=== PATIENT | male | born 1970 ===

== ENCOUNTER 2017-12-30 20:48 | Inpatient (IN) | payer OTHER ==
[2017-12-30 23:18] VITALS: BMI 33.2
[2017-12-31] MEDS ORDERED: Multivitamin (MVI) 10 ML, Thiamine 100 MG, Folic Acid 1 MG in Sodium Chloride 0.9% 1,00... IV ONE (02:52)
--- NOTE | 2017-12-31 02:58 | ED PDOC ---
Arrival/HPI - General Chief Complaint: Alcohol Ingestion Time Seen by Provider: 12/31/17 02:37 Historian: Patient - History of Present Illness Narrative History of Present Illness (Text): 47yoM, etoh 1L vodka daily, last drink yesterday morning, did addition heroin with palpitations which have resolved, wants to stop drinking alcohol and otherwise with tremor but no nausea/vomiting/headache/dizziness/difficulty breathing/chest pain/abdomen pain/numbness/tingling. 12/31/17 02:55 Time/Duration: 24 hours Symptom Onset: Gradual Symptom Course: Unchanged Activities at Onset: Rest Context: Sitting Past Medical History - Provider Review Nursing Documentation Reviewed: Yes - Travel History Have you recently traveled outside [place] w/in the past 3 mons?: No - Infectious Disease Hx of Infectious Diseases: None - Psychiatric Hx Substance Use: No - Anesthesia Hx Anesthesia: No Hx Anesthesia Reactions: No Hx Malignant Hyperthermia: No Family/Social History - Physician Review Nursing Documentation Reviewed: Yes Family/Social History: No Known Family HX Smoking Status: Never Smoked Hx Alcohol Use: Yes Frequency of alcohol use: Daily Hx Substance Use: No Allergies/Home Meds Allergies/Adverse Reactions: Allergies No Known Allergies Allergy (Verified 12/31/17 02:47) Home Medications: Home Meds Medication Instructions Recorded Confirmed No Known Home Med 12/31/17 12/31/17 Review of Systems - Review of Systems Constitutional: Normal Eyes: Normal ENT: Normal Respiratory: Normal Cardiovascular: Palpitations Gastrointestinal: Normal Genitourinary Male: Normal Musculoskeletal: Normal Skin: Normal Neurological: Other (tremor) Endocrine: Normal Hemo/Lymphatic: Normal Psychiatric: Anxiety Physical Exam Vital Signs Reviewed: Yes Vital Signs Temp Pulse Resp BP Pulse Ox 12/31/17 04:00 98.0 F 76 16 130/71 98 12/31/17 02:51 98.0 F 82 15 128/70 97 12/31/17 00:51 98.1 F 78 16 125/77 96 12/30/17 23:18 98.8 F 72 20 128/82 99 Temperature: Afebrile Blood Pressure: Hypertensive Pulse: Regular Respiratory Rate: Normal Appearance: Positive for: Uncomfortable Pain Distress: None Mental Status: Positive for: Alert and Oriented X 3 - Systems Exam Head: Present: Atraumatic, Normocephalic Pupils: Present: PERRL Extroacular Muscles: Present: EOMI Conjunctiva: Present: Normal Ears: Present: Normal Mouth: Present: Moist Mucous Membranes Pharnyx: Present: Normal Nose (External): Present: Atraumatic Nose (Internal): Present: Normal Inspection Neck: Present: Normal Range of Motion Respiratory/Chest: Present: Clear to Auscultation, Good Air Exchange Cardiovascular: Present: Regular Rate and Rhythm Abdomen: No: Tenderness, Distention, Normal Bowel Sounds, Peritoneal Signs, Rebound, Guarding, McBurney's Point Tender, Rovsing's Sign Present, Hernias, Feeding Tubes, Ostomy Tubes, Mass/Organomegaly, Scars, Other Back: Present: Normal Inspection Upper Extremity: Present: Normal Inspection Lower Extremity: Present: Normal Inspection Neurological: Present: GCS=15, CN II-XII Intact, Speech Normal, Motor Func Grossly Intact, Other (b/l mild tremor hands) Skin: Present: Warm, Normal Color Psychiatric: Present: Alert, Oriented x 3, Normal Insight, Normal Concentration Medical Decision Making ED Course and Treatment: 47yoM, etoh 1L vodka daily, last drink yesterday morning, did addition heroin with palpitations which have resolved, wants to stop drinking alcohol and otherwise with tremor but no nausea/vomiting/headache/dizziness/difficulty breathing/chest pain/abdomen pain/numbness/tingling. mild both hands tremor, alert/oriented, breathing comfortably, pink skin, good strength/sensation, 98.8temp, stable heart rate 72, elevated blood pressure 128/82, stable breathing rate 20, excellent oxygen level 99% room air. 12/31/17 02:58 12/31/17 04:19 ECG NSR wbc 5.9 hb 11 plts 153 K 3.4 Trop < 0.01 AST 194 ALT 101 AP 147 12/31/17 05:20 d/w Dr. Celis who stated can admit to Dr. Pettit who accepted. - Lab Interpretations Lab Results: 12/31/17 00:40 12/31/17 00:40 Lab Results 12/31/17 02:50: Urine Opiates Screen Positive H, Urine Methadone Screen Negative , Ur Barbiturates Screen Negative, Ur Phencyclidine Scrn Negative, Ur Amphetamines Screen Negative, U Benzodiazepines Scrn Positive, U Oth Cocaine Metabols Negative, U Cannabinoids Screen Negative 12/31/17 02:50: Urine Color Yellow, Urine Appearance Clear, Urine pH 6.0, Ur Specific Zoe >= 1.030, Urine Protein 30 H, Urine Glucose (UA) Negative, Urine Ketones Trace H, Urine Blood Negative, Urine Nitrate Negative, Urine Bilirubin Negative, Urine Urobilinogen 0.2, Ur Leukocyte Esterase Negative, Urine RBC 0 - 2, Urine WBC 0 - 2, Ur Epithelial Cells 0 - 2, Urine Bacteria Few , Urine Other Uyeast 12/31/17 00:40: Alcohol, Quantitative 123 H 12/31/17 00:40: Salicylates < 1 L, Acetaminophen < 10.0 L 12/31/17 00:40: Sodium 146, Potassium 3.4 L, Chloride 104, Carbon Dioxide 28, Anion Gap 18, BUN 9, Creatinine 0.5 L, Est GFR ( Amer) > 60, Est GFR (Non -Af Amer) > 60, Random Glucose 86, Calcium 8.7, Total Bilirubin 0.4, AST 194 H, ALT 101 H, Alkaline Phosphatase 147 H, Troponin I < 0.01, Total Protein 7.6, Albumin 4.2, Globulin 3.4, Albumin/Globulin Ratio 1.2 12/31/17 00:40: WBC 5.9, RBC 3.47 L, Hgb 11.0 L, Hct 33.3 L, MCV 96.0, MCH 31.7 , MCHC 33.0, RDW 13.9, Plt Count 153, MPV 10.2, Gran % 67.0, Lymph % (Auto) 24.7 , [place] % (Auto) 7.5 H, Eos % (Auto) 0.5 L, Baso % (Auto) 0.3, Gran # 3.92, Lymph # (Auto) 1.5, [place] # (Auto) 0.4, Eos # (Auto) 0.0, Baso # (Auto) 0.02 I have reviewed the lab results: Yes - RAD Interpretation Radiology Orders: 12/31/17 02:54 CHEST ONE VIEW [RAD] Stat Sales Effectiveness Manager: ED Physician (cxr no acute) - EKG Interpretation Interpreted by ED Physician: Yes (NSR) Type: 12 lead EKG - Medication Orders Current Medication Orders: Multivitamins/Vitamin C 10 ml/Thiamine HCl 100 mg/ Folic Acid 1 mg/ Sodium Chloride 1,011.2 mls @ 100 mls/hr IV ONCE ONE Stop: 12/31/17 12:58 Last Admin: 12/31/17 03:37 Dose: 100 mls/hr eMAR Start Stop Document 12/31/17 03:37 AB (Rec: 12/31/17 03:37 AB [id number]) Intravenous Solution Start Date 12/31/17 Start Time 03:00 End Date 12/31/17 Discontinued Medications Chlordiazepoxide (Librium) 25 mg PO STAT STA PRN Reason: Protocol Stop: 12/31/17 02:54 Last Admin: 12/31/17 03:38 Dose: 25 mg Disposition/Present on Arrival - Present on Arrival Any Indicators Present on Arrival: No History of DVT/PE: No History of Uncontrolled Diabetes: No Urinary Catheter: No History of Decub. Ulcer: No History Surgical Site Infection Following: None - Disposition Have Diagnosis and Disposition been Completed?: Yes Diagnosis: Alcohol withdrawal Disposition: HOSPITALIZED Disposition Time: 05:21 Patient Plan: Admission Condition: IMPROVED Referrals: Jeffrey Mar, [Primary Care Provider] - Follow up with primary Forms: [employer] (Slovak)
[2017-12-31 03:19] LABS: BASO # 0.02 K/mm3 (0.0-2.0); BASO % 0.3 % (0.0-3.0); EOS % 0.5 % (1.5-5.0); GRAN # 3.92 (1.4-6.5); LYMPH # 1.5 (1.2-3.4); LYMPH % 24.7 % (22.0-35.0); MEAN CORPUSCULAR HEMOGLOBIN 31.7 pg (25.0-35.0); MEAN PLATELET VOLUME 10.2 fl (7.0-11.0); MONO # 0.4 (0.1-0.6); MONO % 7.5 % (1.0-6.0); RBC 3.47 10^6/uL (3.5-6.1); RED CELL DISTRIBUTION WIDTH 13.9 % (11.5-14.5); WHITE BLOOD COUNT 5.9 10^3/ul (4.5-11.0)
[2017-12-31 03:20] LABS: URINE APPEARANCE CLEAR (CLEAR); URINE BILIRUBIN NEGATIVE (NEGATIVE); URINE BLOOD NEGATIVE (NEGATIVE); URINE COLOR YELLOW (YELLOW); URINE GLUCOSE (UA) NEGATIVE (NEGATIVE); URINE LEUKOCYTE ESTERASE NEGATIVE Leu/uL (NEGATIVE); URINE NITRATE NEGATIVE (NEGATIVE); URINE PROTEIN 30 mg/dL (<30 mg/dL); URINE UROBILINOGEN 0.2 E.U./dL (<1 E.U./dL)
[2017-12-31 03:30] LABS: ACETAMINOPHEN < 10.0 ug/ml (10.0-20.0); SALICYLATE < 1 mg/dL (2.0-20.0)
[2017-12-31 03:31] LABS: ALB/GLOB RATIO 1.2 (1.1-1.8); ALBUMIN 4.2 g/dL (3.0-4.8); ALT/SGPT 101 U/L (7-56); AST/SGOT 194 U/L (17-59); BLOOD UREA NITROGEN 9 mg/dL (7-21); CALCIUM 8.7 mg/dL (8.4-10.5); GFR AFRICAN-AMERICAN > 60; GFR NON-AFRICAN AMERICAN > 60
[2017-12-31 03:36] LABS: BARBITURATES, UR NEGATIVE (NEGATIVE); PHENCYCLIDINE, UR NEGATIVE (NEGATIVE)
[2017-12-31 03:38] LABS: BENZODIAZEPINES, UR POSITIVE (NEGATIVE); OPIATES, UR POSITIVE (NEGATIVE)
[2017-12-31 03:42] LABS: TROPONIN I < 0.01 ng/mL
[2017-12-31 04:47] LABS: URINE BACTERIA FEW (NEG); URINE EPITHELIAL CELLS 0 - 2 /hpf (0-5); URINE RBC 0 - 2 /hpf (0-2); URINE WBC 0 - 2 /hpf (0-6)
--- NOTE | 2017-12-31 05:56 | CP.PCM.HP ---
History of Present Illness - History of Present Illness History of Present Illness: Vimal Bravo PGY1 IM H&P Note cc:ETOH withdrawal Mr. Hong is a 47yo Male with a PMH of ETOH and heroin abuse. HPI and ROS were limited due to condition of patient as he is actively withdrawing. Patient states that he usually drinks 1liter of vodka daily and beer. Also snorts heroin but has never injected. Patient states last drink was the morning prior to ED visit but was less than his usual. Patient experienced palpitations and tremors which brought him in. Patient denies ever having seizures from withdrawals before. He states he lives with with his sister in [place] but was near [place] visiting friends. States he has not vomited since Ed, but may have earlier and is feeling nauseous. Denies chest pain, shortness of breath , fevers/chills. rest of history and ROS could not be obtained due to patient actively withdrawing. Present on Admission - Present on Admission Any Indicators Present on Admission: No Review of Systems - Review of Systems Systems not reviewed;Unavailable: Altered Mental Status, Intoxicated Past Patient History - Infectious Disease Hx of Infectious Diseases: None - Past Social History Smoking Status: Never Smoked Alcohol: > 2 Drinks/Day Drugs: Opiates Home Situation {Lives}: With Family - CARDIAC Hx Cardiac Disorders: No - PULMONARY Hx Respiratory Disorders: No - NEUROLOGICAL Hx Neurological Disorder: No - HEENT Hx HEENT Problems: No - RENAL Hx Chronic Kidney Disease: No - ENDOCRINE/METABOLIC Hx Endocrine Disorders: No - HEMATOLOGICAL/ONCOLOGICAL Hx Blood Disorders: No - INTEGUMENTARY Hx Dermatological Problems: No - MUSCULOSKELETAL/RHEUMATOLOGICAL Hx Musculoskeletal Disorders: No - GASTROINTESTINAL Hx Gastrointestinal Disorders: No - GENITOURINARY/GYNECOLOGICAL Hx Genitourinary Disorders: No - PSYCHIATRIC Hx Psychophysiologic Disorder: Yes Hx Substance Use: Yes - SURGICAL HISTORY Hx Surgeries: No - ANESTHESIA Hx Anesthesia: No Hx Anesthesia Reactions: No Hx Malignant Hyperthermia: No Meds Allergies/Adverse Reactions: Allergies Allergy/AdvReac Type Severity Reaction Status Date / Time No Known Allergies Allergy Verified 12/31/17 02:47 Physical Exam - Constitutional Appears: Toxic, No Acute Distress, Unkempt - Head Exam Head Exam: ATRAUMATIC, NORMAL INSPECTION - Eye Exam Pupil Exam: Miosis - ENT Exam ENT Exam: Mucous Membranes Moist - Neck Exam Neck exam: Positive for: Normal Inspection - Respiratory Exam Respiratory Exam: NORMAL BREATHING PATTERN. absent: Rales, Rhonchi, Wheezes - Cardiovascular Exam Cardiovascular Exam: RRR, +S1, +S2 - GI/Abdominal Exam GI & Abdominal Exam: Normal Bowel Sounds, Soft, Tenderness. absent: Distended - Extremities Exam Extremities exam: Positive for: normal inspection - Back Exam Back exam: NORMAL INSPECTION - Neurological Exam Neurological exam: Altered - Psychiatric Exam Psychiatric exam: Normal Affect, Normal Mood - Skin Skin Exam: Normal Color, Warm Results - Vital Signs Recent Vital Signs: Last Vital Signs Temp 98.0 F 12/31/17 04:00 Pulse 76 12/31/17 04:00 Resp 16 12/31/17 04:00 BP 130/71 12/31/17 04:00 Pulse Ox 98 12/31/17 04:00 - Labs Result Diagrams: 12/31/17 06:00 12/31/17 00:40 Assessment & Plan - Assessment and Plan (Free Text) Assessment: 47yo Male with a PMH of ETOH and heroin abuse. HPI and ROS were limited due to condition of patient as he is actively withdrawing. Alcohol level was elevated in ED. UDS +heroin and benzos. LFT's also elevated. Plan: 1. ETOH withdrawal - EKG reviewed; showed NSR w/ nonspecific ST wave abnormalities - Librium given in ED; avoid given LFT's elevated - Ativan DIANA and PRN - CIWA protocol - banana bag w/ thiamine, MV and folic acid - fall risk - aspiration precautions - seizure precautions - remote tele for monitoring of vitals and neurochecks - NPO - check mangesium, phos, lipase and amylase 2. Hypokalemia - replete 3. Transaminitis - likely 2/2 chronic ETOH abuse - check INR - check lipase and amylase - trend AM labs 4. PPX - Heparin for DVT ppx - PTX for GI PPX Patient was seen, examined and discussed with attending, Dr. Katy Bravo PGY1
[2017-12-31 07:05] LABS: HEMOGLOBIN 10.1 g/dL (14.0-18.0); MEAN CELL VOLUME 95.3 fl (80.0-105.0); MEAN CORPUSCULAR HEMOGLOBIN 31.6 pg (25.0-35.0); MEAN CORPUSCULAR HGB CONC 33.1 g/dl (31.0-37.0); MEAN PLATELET VOLUME 9.9 fl (7.0-11.0); RBC 3.2 10^6/uL (3.5-6.1); WHITE BLOOD COUNT 3.7 10^3/ul (4.5-11.0)
[2017-12-31 07:17] LABS: INR 1.12 (0.93-1.08); PROTHROMBIN TIME 12.9 SECONDS (9.4-12.5)
[2017-12-31 07:48] LABS: ALB/GLOB RATIO 1.2 (1.1-1.8); ALBUMIN 3.6 g/dL (3.0-4.8); ALT/SGPT 101 U/L (7-56); AMYLASE 91 U/L (35-125); AST/SGOT 163 U/L (17-59); BLOOD UREA NITROGEN 6 mg/dL (7-21); CALCIUM 8.1 mg/dL (8.4-10.5); GFR AFRICAN-AMERICAN > 60; GFR NON-AFRICAN AMERICAN > 60; LIPASE 130 U/L (23-300); MAGNESIUM 1.4 mg/dL (1.7-2.2)
[2017-12-31] MEDS ORDERED: Magnesium Oxide 400 mg Tab UD PO STA (08:24)
[2017-12-31] MEDS ORDERED: Magnesium Sulfate 2 GM in Sodium Chloride 0.9% 100 ML IVPB ONE (08:24)
[2017-12-31] MEDS ORDERED: Potassium Chloride 20 mEq ER Tab PO STA (08:24)
--- NOTE | 2017-12-31 10:38 | RAD ---
PROCEDURE: CHEST RADIOGRAPH, 1 VIEW HISTORY: palpitations COMPARISON: None available. FINDINGS: LUNGS: Clear. PLEURA: No pneumothorax or pleural fluid seen. CARDIOVASCULAR: No radiographic findings to suggest acute or significant cardiovascular disease. OSSEOUS STRUCTURES: No significant abnormalities. VISUALIZED UPPER ABDOMEN: Normal. OTHER FINDINGS: None. IMPRESSION: No active disease.
--- NOTE | 2017-12-31 10:59 | US ---
HISTORY: Elevated LFTs, RUQ US COMPARISON: None. TECHNIQUE: Sonographic evaluation of the abdomen. FINDINGS: LIVER: Measures 14.2 cm. Hepatopedal blood flow. Fatty infiltration manifest ultrasonographically as increased echogenicity of the liver parenchyma. No mass. No intrahepatic bile duct dilatation. GALLBLADDER: Unremarkable. No gallstones. COMMON BILE DUCT: Measures 6.8 mm. No stones. No dilatation. PANCREAS: Unremarkable as visualized. No mass. No ductal dilatation. RIGHT KIDNEY: Measures 5.4 x 11.3cm. Normal echogenicity. No calculus, mass, or hydronephrosis. LEFT KIDNEY: Measures 6.7 x 11cm. Normal echogenicity. No calculus, mass, or hydronephrosis. SPLEEN: Normal in size and contour. No mass. AORTA: No aneurysmal dilatation. IVC: Unremarkable. OTHER FINDINGS: None. IMPRESSION: Hepatic steatosis/ no focal masses. Otherwise unremarkable study.
[2017-12-31 11:52] LABS: HEPATITIS B SURFACE AG Negative (NEGATIVE)
[2017-12-31 11:58] LABS: HEPATITIS A IGM NEGATIVE (NEGATIVE); HEPATITIS B CORE AB NEGATIVE (NEGATIVE)
[2017-12-31 12:10] LABS: HEPATITIS C ANTIBODY NEGATIVE (NEGATIVE)
[2017-12-31] MEDS: Multivitamin (MVI) 10 ML, Thiamine 100 MG, Folic Acid 1 MG in Sodium Chloride 0.9% 1,00... IV SCH ×2 (13:02→21:45)
--- NOTE | 2017-12-31 21:34 | CARD ---
APPROVED REPORT EKG Measurement Heart [id number] SD 130P60 [id number] <Conclusion> Normal sinus rhythm Nonspecific ST abnormality Abnormal ECG
[2018-01-01] MEDS: Multivitamin (MVI) 10 ML, Thiamine 100 MG, Folic Acid 1 MG in Sodium Chloride 0.9% 1,00... IV SCH (02:01)
[2018-01-01 06:38] LABS: MEAN CELL VOLUME 92.8 fl (80.0-105.0); MEAN CORPUSCULAR HEMOGLOBIN 31.8 pg (25.0-35.0); MEAN CORPUSCULAR HGB CONC 34.3 g/dl (31.0-37.0); MEAN PLATELET VOLUME 10.1 fl (7.0-11.0); RBC 3.77 10^6/uL (3.5-6.1); RED CELL DISTRIBUTION WIDTH 13.5 % (11.5-14.5); WHITE BLOOD COUNT 3.8 10^3/ul (4.5-11.0)
[2018-01-01 06:59] LABS: ALB/GLOB RATIO 1.2 (1.1-1.8); ALT/SGPT 90 U/L (7-56); AST/SGOT 119 U/L (17-59); BLOOD UREA NITROGEN 3 mg/dL (7-21); CALCIUM 9.4 mg/dL (8.4-10.5); GFR AFRICAN-AMERICAN > 60; GFR NON-AFRICAN AMERICAN > 60
[2018-01-01 07:04] LABS: INR 1.13 (0.93-1.08)
[2018-01-01 08:52] VITALS: BP 137/91; PULSE 94; RESP 18; TEMP 98.7; O2SAT 99
--- NOTE | 2018-01-01 13:14 | CP.PCM.DIS ---
<Lina Thacker - Last Filed: 01/01/18 15:51> Provider - Provider Date of Admission: 12/31/17 05:27 Attending physician: Maru Wong MD Time Spent in preparation of Discharge (in minutes): 0 Diagnosis - Discharge Diagnosis (1) Heroin withdrawal Status: Acute (2) Alcohol withdrawal Status: Acute Hospital Course - Lab Results Lab Results: Most Recent Lab Values WBC 3.8 10^3/ul (4.5-11.0) L 01/01/18 06:00 RBC 3.77 10^6/uL (3.5-6.1) 01/01/18 06:00 Hgb 12.0 g/dL (14.0-18.0) L 01/01/18 06:00 Hct 35.0 % (42.0-52.0) L 01/01/18 06:00 MCV 92.8 fl (80.0-105.0) 01/01/18 06:00 MCH 31.8 pg (25.0-35.0) 01/01/18 06:00 MCHC 34.3 g/dl (31.0-37.0) 01/01/18 06:00 RDW 13.5 % (11.5-14.5) 01/01/18 06:00 Plt Count 161 10^3/uL (120.0-450.0) 01/01/18 06:00 MPV 10.1 fl (7.0-11.0) 01/01/18 06:00 Gran % 67.0 % (50.0-68.0) 12/31/17 00:40 Lymph % (Auto) 24.7 % (22.0-35.0) 12/31/17 00:40 [place] % (Auto) 7.5 % (1.0-6.0) H 12/31/17 00:40 Eos % (Auto) 0.5 % (1.5-5.0) L 12/31/17 00:40 Baso % (Auto) 0.3 % (0.0-3.0) 12/31/17 00:40 Gran # 3.92 (1.4-6.5) 12/31/17 00:40 Lymph # (Auto) 1.5 (1.2-3.4) 12/31/17 00:40 [place] # (Auto) 0.4 (0.1-0.6) 12/31/17 00:40 Eos # (Auto) 0.0 (0.0-0.7) 12/31/17 00:40 Baso # (Auto) 0.02 K/mm3 (0.0-2.0) 12/31/17 00:40 PT 13.0 SECONDS (9.4-12.5) H 01/01/18 06:00 INR 1.13 (0.93-1.08) H 01/01/18 06:00 Sodium 135 mmol/L (132-148) 01/01/18 06:00 Potassium 3.8 mmol/L (3.6-5.0) 01/01/18 06:00 Chloride 99 mmol/L (98-107) 01/01/18 06:00 Carbon Dioxide 23 mmol/L (21-33) 01/01/18 06:00 Anion Gap 17 (10-20) 01/01/18 06:00 BUN 3 mg/dL (7-21) L 01/01/18 06:00 Creatinine 0.5 mg/dl (0.8-1.5) L 01/01/18 06:00 Est GFR ( Amer) > 60 01/01/18 06:00 Est GFR (Non-Af Amer) > 60 01/01/18 06:00 Random Glucose 82 mg/dL (70-110) 01/01/18 06:00 Calcium 9.4 mg/dL (8.4-10.5) 01/01/18 06:00 Phosphorus 3.4 mg/dL (2.5-4.5) 12/31/17 06:00 Magnesium 1.4 mg/dL (1.7-2.2) L 12/31/17 06:00 Total Bilirubin 1.0 mg/dL (0.2-1.3) 01/01/18 06:00 AST 119 U/L (17-59) H D 01/01/18 06:00 ALT 90 U/L (7-56) H 01/01/18 06:00 Alkaline Phosphatase 133 U/L (38-126) H 01/01/18 06:00 Total Creatine Kinase 202 U/L (35-230) 12/31/17 12:30 Troponin I < 0.01 ng/mL 12/31/17 00:40 Total Protein 7.4 g/dL (5.8-8.3) 01/01/18 06:00 Albumin 4.0 g/dL (3.0-4.8) 01/01/18 06:00 Globulin 3.5 gm/dL 01/01/18 06:00 Albumin/Globulin Ratio 1.2 (1.1-1.8) 01/01/18 06:00 Amylase 91 U/L (35-125) 12/31/17 06:00 Lipase 130 U/L (23-300) 12/31/17 06:00 Urine Color Yellow (YELLOW) 12/31/17 02:50 Urine Appearance Clear (CLEAR) 12/31/17 02:50 Urine pH 6.0 (4.7-8.0) 12/31/17 02:50 Ur Specific [place] >= 1.030 (1.005-1.035) 12/31/17 02:50 Urine Protein 30 mg/dL (<30 mg/dL) H 12/31/17 02:50 Urine Glucose (UA) Negative mg/dL (NEGATIVE) 12/31/17 02:50 Urine Ketones Trace mg/dL (NEGATIVE) H 12/31/17 02:50 Urine Blood Negative (NEGATIVE) 12/31/17 02:50 Urine Nitrate Negative (NEGATIVE) 12/31/17 02:50 Urine Bilirubin Negative (NEGATIVE) 12/31/17 02:50 Urine Urobilinogen 0.2 E.U./dL (<1 E.U./dL) 12/31/17 02:50 Ur Leukocyte Esterase Negative Wilmer/uL (NEGATIVE) 12/31/17 02:50 Urine RBC 0 - 2 /hpf (0-2) 12/31/17 02:50 Urine WBC 0 - 2 /hpf (0-6) 12/31/17 02:50 Ur Epithelial Cells 0 - 2 /hpf (0-5) 12/31/17 02:50 Urine Bacteria Few (NEG) 12/31/17 02:50 Urine Other Uyeast 12/31/17 02:50 Salicylates < 1 mg/dL (2.0-20.0) L 12/31/17 00:40 Urine Opiates Screen Positive (NEGATIVE) H 12/31/17 02:50 Urine Methadone Screen Negative (NEGATIVE) 12/31/17 02:50 Acetaminophen < 10.0 ug/ml (10.0-20.0) L 12/31/17 00:40 Ur Barbiturates Screen Negative (NEGATIVE) 12/31/17 02:50 Ur Phencyclidine Scrn Negative (NEGATIVE) 12/31/17 02:50 Ur Amphetamines Screen Negative (NEGATIVE) 12/31/17 02:50 U Benzodiazepines Scrn Positive (NEGATIVE) 12/31/17 02:50 U Oth Cocaine Metabols Negative (NEGATIVE) 12/31/17 02:50 U Cannabinoids Screen Negative (NEGATIVE) 12/31/17 02:50 Alcohol, Quantitative 123 mg/dL (0-10) H 12/31/17 00:40 Hepatitis A IgM Ab Negative (NEGATIVE) 12/31/17 05:00 Hep Bs Antigen Negative (NEGATIVE) 12/31/17 05:00 Hep B Core IgM Ab Negative (NEGATIVE) 12/31/17 05:00 Hepatitis C Antibody Negative (NEGATIVE) 12/31/17 05:00 - Hospital Course Hospital Course: 47 yo male with a PMH of ETOH and heroin abuse, presents to ED for acute withdrawal. UDS positive for opiates and etoh level elevated. Pt treated with Ativan scheduled and prn doses. Pt found to be hypokalemic, replaced. Pt also found to have elevated LFTS, hepatitis panel obtained negative. Abdominal US showed hepatic steatosis/fatty infiltration. Pt to be monitored for further withdrawal and tapering of ativan was in process. However, pt walked out AMA. Discharge Exam - Head Exam Head Exam: ATRAUMATIC, NORMAL INSPECTION - Eye Exam Eye Exam: EOMI, PERRL. absent: Conjunctival injection, Scleral icterus Pupil Exam: PERRL. absent: Irregular, Unequal - ENT Exam ENT Exam: Mucous Membranes Moist - Neck Exam Neck exam: Full Rom - Respiratory Exam Respiratory Exam: Clear to PA & Lateral. absent: Accessory Muscle Use, Rales, Wheezes, Respiratory Distress - Cardiovascular Exam Cardiovascular Exam: RRR, +S1, +S2. absent: Systolic Murmur - GI/Abdominal Exam GI & Abdominal Exam: Normal Bowel Sounds, Soft. absent: Distended, Organomegaly , Tenderness - Extremities Exam Extremities exam: normal inspection - Back Exam Back exam: NORMAL INSPECTION - Neurological Exam Neurological exam: Alert, Oriented x3 - Psychiatric Exam Psychiatric exam: Normal Affect, Normal Mood - Skin Skin Exam: Dry, Normal Color, Warm Discharge Plan - Follow Up Plan Condition: GUARDED Disposition: AGAINST MEDICAL ADVICE Patient education suggested?: Yes Instructions: Alcohol Withdrawal (DC) <Maru Wong - Last Filed: 01/01/18 16:43> Provider - Provider Date of Admission: 12/31/17 05:27 Attending physician: Maru Wong MD Time Spent in preparation of Discharge (in minutes): 25 Hospital Course - Lab Results Lab Results: Most Recent Lab Values WBC 3.8 10^3/ul (4.5-11.0) L 01/01/18 06:00 RBC 3.77 10^6/uL (3.5-6.1) 01/01/18 06:00 Hgb 12.0 g/dL (14.0-18.0) L 01/01/18 06:00 Hct 35.0 % (42.0-52.0) L 01/01/18 06:00 MCV 92.8 fl (80.0-105.0) 01/01/18 06:00 MCH 31.8 pg (25.0-35.0) 01/01/18 06:00 MCHC 34.3 g/dl (31.0-37.0) 01/01/18 06:00 RDW 13.5 % (11.5-14.5) 01/01/18 06:00 Plt Count 161 10^3/uL (120.0-450.0) 01/01/18 06:00 MPV 10.1 fl (7.0-11.0) 01/01/18 06:00 Gran % 67.0 % (50.0-68.0) 12/31/17 00:40 Lymph % (Auto) 24.7 % (22.0-35.0) 12/31/17 00:40 [place] % (Auto) 7.5 % (1.0-6.0) H 12/31/17 00:40 Eos % (Auto) 0.5 % (1.5-5.0) L 12/31/17 00:40 Baso % (Auto) 0.3 % (0.0-3.0) 12/31/17 00:40 Gran # 3.92 (1.4-6.5) 12/31/17 00:40 Lymph # (Auto) 1.5 (1.2-3.4) 12/31/17 00:40 [place] # (Auto) 0.4 (0.1-0.6) 12/31/17 00:40 Eos # (Auto) 0.0 (0.0-0.7) 12/31/17 00:40 Baso # (Auto) 0.02 K/mm3 (0.0-2.0) 12/31/17 00:40 PT 13.0 SECONDS (9.4-12.5) H 01/01/18 06:00 INR 1.13 (0.93-1.08) H 01/01/18 06:00 Sodium 135 mmol/L (132-148) 01/01/18 06:00 Potassium 3.8 mmol/L (3.6-5.0) 01/01/18 06:00 Chloride 99 mmol/L (98-107) 01/01/18 06:00 Carbon Dioxide 23 mmol/L (21-33) 01/01/18 06:00 Anion Gap 17 (10-20) 01/01/18 06:00 BUN 3 mg/dL (7-21) L 01/01/18 06:00 Creatinine 0.5 mg/dl (0.8-1.5) L 01/01/18 06:00 Est GFR ( Amer) > 60 01/01/18 06:00 Est GFR (Non-Af Amer) > 60 01/01/18 06:00 Random Glucose 82 mg/dL (70-110) 01/01/18 06:00 Calcium 9.4 mg/dL (8.4-10.5) 01/01/18 06:00 Phosphorus 3.4 mg/dL (2.5-4.5) 12/31/17 06:00 Magnesium 1.4 mg/dL (1.7-2.2) L 12/31/17 06:00 Total Bilirubin 1.0 mg/dL (0.2-1.3) 01/01/18 06:00 AST 119 U/L (17-59) H D 01/01/18 06:00 ALT 90 U/L (7-56) H 01/01/18 06:00 Alkaline Phosphatase 133 U/L (38-126) H 01/01/18 06:00 Total Creatine Kinase 202 U/L (35-230) 12/31/17 12:30 Troponin I < 0.01 ng/mL 12/31/17 00:40 Total Protein 7.4 g/dL (5.8-8.3) 01/01/18 06:00 Albumin 4.0 g/dL (3.0-4.8) 01/01/18 06:00 Globulin 3.5 gm/dL 01/01/18 06:00 Albumin/Globulin Ratio 1.2 (1.1-1.8) 01/01/18 06:00 Amylase 91 U/L (35-125) 12/31/17 06:00 Lipase 130 U/L (23-300) 12/31/17 06:00 Urine Color Yellow (YELLOW) 12/31/17 02:50 Urine Appearance Clear (CLEAR) 12/31/17 02:50 Urine pH 6.0 (4.7-8.0) 12/31/17 02:50 Ur Specific [place] >= 1.030 (1.005-1.035) 12/31/17 02:50 Urine Protein 30 mg/dL (<30 mg/dL) H 12/31/17 02:50 Urine Glucose (UA) Negative mg/dL (NEGATIVE) 12/31/17 02:50 Urine Ketones Trace mg/dL (NEGATIVE) H 12/31/17 02:50 Urine Blood Negative (NEGATIVE) 12/31/17 02:50 Urine Nitrate Negative (NEGATIVE) 12/31/17 02:50 Urine Bilirubin Negative (NEGATIVE) 12/31/17 02:50 Urine Urobilinogen 0.2 E.U./dL (<1 E.U./dL) 12/31/17 02:50 Ur Leukocyte Esterase Negative Wilmer/uL (NEGATIVE) 12/31/17 02:50 Urine RBC 0 - 2 /hpf (0-2) 12/31/17 02:50 Urine WBC 0 - 2 /hpf (0-6) 12/31/17 02:50 Ur Epithelial Cells 0 - 2 /hpf (0-5) 12/31/17 02:50 Urine Bacteria Few (NEG) 12/31/17 02:50 Urine Other Uyeast 12/31/17 02:50 Salicylates < 1 mg/dL (2.0-20.0) L 12/31/17 00:40 Urine Opiates Screen Positive (NEGATIVE) H 12/31/17 02:50 Urine Methadone Screen Negative (NEGATIVE) 12/31/17 02:50 Acetaminophen < 10.0 ug/ml (10.0-20.0) L 12/31/17 00:40 Ur Barbiturates Screen Negative (NEGATIVE) 12/31/17 02:50 Ur Phencyclidine Scrn Negative (NEGATIVE) 12/31/17 02:50 Ur Amphetamines Screen Negative (NEGATIVE) 12/31/17 02:50 U Benzodiazepines Scrn Positive (NEGATIVE) 12/31/17 02:50 U Oth Cocaine Metabols Negative (NEGATIVE) 12/31/17 02:50 U Cannabinoids Screen Negative (NEGATIVE) 12/31/17 02:50 Alcohol, Quantitative 123 mg/dL (0-10) H 12/31/17 00:40 Hepatitis A IgM Ab Negative (NEGATIVE) 12/31/17 05:00 Hep Bs Antigen Negative (NEGATIVE) 12/31/17 05:00 Hep B Core IgM Ab Negative (NEGATIVE) 12/31/17 05:00 Hepatitis C Antibody Negative (NEGATIVE) 12/31/17 05:00 Discharge Plan - Follow Up Plan Patient education suggested?: Yes Attending/Attestation - Attestation I have personally seen and examined this patient.: Yes I have fully participated in the care of the patient.: Yes I have reviewed all pertinent clinical information, including history, physical exam and plan: Yes Notes (Text): 01/01/18 16:39 47 year old male with past medical history of alcohol and heroin abuse who presented with withdrawal symptoms. He was counselled on risks of continued substance and alcohol abuse. He was on ativan prn/issa for withdrawal symptoms. LFTs were elevated likely secondary to chronic ETOH abuse. Hepatitis panel was negative. US abdomen showed fatty liver. Patient was seen and examined at bedside earlier this morning and explained plan of care which including tapering of ativan as withdrawal symptoms improved. However he signed out AMA later during the day. Maru Wong MD Hospitalist.
== END 2018-01-01 13:58 | disposition left against medical advice (07) | DRG 743 ==
LOC: ED 20:48 → ERH 12-31 05:27 → 3RNO 12-31 11:51
PROVIDERS: ADMIT Internal Medicine; ATTEND Internal Medicine
DX: F10.239 Alcohol dependence with withdrawal, unspecified (principal); E87.6 Hypokalemia; F11.23 Opioid dependence with withdrawal; K76.0 Fatty (change of) liver, not elsewhere classified; Y90.6 Blood alcohol level of 120-199 mg/100 ml